=== PATIENT | female | born 1985 | race Asian ===

== ENCOUNTER 2016-12-01 09:18 | Inpatient (IN) | payer MEDICAID, OTHER ==
[~2016-12-01] VITALS: Ht 157.5 cm; Wt 74.0 kg
[~2016-12-01 09:18] MED LIST: OMEPRAZOLE
[2016-12-01 09:36] VITALS: Ht 157.5 cm; Wt 74.0 kg
[2016-12-01] MEDS ORDERED: PRENAT PO (09:37)
[2016-12-01] MEDS ORDERED: CARBOPROST 250 MCG INJ IM PRN (10:00)
[2016-12-01] MEDS ORDERED: OXYTOCIN 30 UNITS/LR 500 ML IV SCH (10:00)
[2016-12-01] MEDS ORDERED: METHYLERGONOVINE 0.2 MG INJ IM PRN (10:00)
[2016-12-01] MEDS ORDERED: LACTATED RINGER'S 1,000 ML IV PRN (10:00)
[2016-12-01] MEDS ORDERED: OXYTOCIN 30 UNITS/LR 500 ML IV PRN (10:00)
[2016-12-01] MEDS ORDERED: LIDOCAINE 1% (MPF) 30 ML INJ INJ PRN (10:00)
[2016-12-01] MEDS ORDERED: MISOPROSTOL 200 MCG TAB PR PRN (10:00)
[2016-12-01] MEDS ORDERED: BUTORPHANOL 2 MG INJ IV PRN ×2 (10:00)
--- NOTE | 2016-12-01 10:25 | RADRPT ---
PROCEDURE: US OB. CLINICAL INDICATION: Decreased motion. TECHNIQUE: Multiple sonographic images of the uterus were obtained. The images were revi ewed on a PACS workstation. COMPARISON: No prior studies are available for comparison. FINDINGS: There is a single live intrauterine gestation. heart rate is 131 beats per minute. Measurements were made in order to determine age. The results are as follows: BPD = 8.99 cm. HC = 31.36 cm. AC = 35.26 cm. FL = 7.11 cm. Estimated weight is 3297 +/- 495 grams. LMP growth percentile is 16%. Menstrual age by ultrasound dates is 36 weeks 6 days. The estimated date of delivery is 12/23/2016. Position is cephalic and placenta is anterior grade II. There is no evidence for an abruption or moises centa previa. IMPRESSION: 1. Single live intrauterine gestation of 36 weeks 6 days menstrual age by ultrasound dates. 2. The estimated date of delivery is 12/23/2016. RPTAT: QQ .Benedicto Baldwin MD, Date Time Electronically viewed and signed by .Benedicto Baldwin MD, on 12/01/2016 10:24 .R/
[2016-12-01] MEDS ORDERED: DINOPROSTONE 10 MG VAG SUPP VAG ONE (10:30)
[2016-12-01] MEDS: LACTATED RINGER'S 1,000 ML IV SCH ×2 (10:30→21:41)
--- NOTE | 2016-12-01 10:38 | TRIAGE ---
OB Triage Datetime Report Generated by CPN: 12/01/2016 10:38 Datetime: 12/01/2016 09:46 Stage of : OB Triage Datetime: 12/01/2016 09:30 Stage of : OB Triage Assessment Type: Triage Maternal Assessment Level of Consciousness: Fully Conscious DTR's/Clonus: DTRs 2+; No Clonus Headache: Denies Blurred Vision: No Respiratory Effort: Unlabored; Regular Rhythm; Equal Expansion Breath Sounds, Left: Clear and Equal Breath Sounds, Right: Clear and Equal Nausea/Vomiting: Denies RUQ Epigastric Pain: Denies Lower Extremities Edema: None Degree: None Upper Extremities Edema: None Degree: None Facial Edema: None Temperature Route: Axillary Fall Risk Assessment History of Falling: (0) No Secondary Diagnosis: (0) No Ambulatory Aid: (0) Bedrest/Nurse Assist IV Therapy: (0) No Gait: (0) Normal/Bedrest/Immobile Mental Status: (0) Oriented to Own Ability Fall Score: 0 Fall Risk Score Definition: No Risk: No action required Labor Evaluation Frequency: 0 Monitor Mode: External Resting Tone [place]: Relaxed Heart Rate FHR Baseline Rate: 120 Monitor Mode: External US Variability: Moderate 6-25 bpm Decelerations: None Category: Category I Pain Assessment Pain Scale: 7 Pain Presence: Intermittent Pain Type: Cramping Pain Location: Abdomen Pain Goal: 3 Pain Relief Measures: Comfort Measures Vaginal Exam Dilatation (cms): 1.0 Effacement (%): 60 Station: -2 Exam By: SLAYNE Membrane Status: Intact Datetime: 12/01/2016 09:29 EGA: 40.6 Datetime: 12/01/2016 09:28 Time of Arrival: 12/01/2016 09:15 Arrived By: Ambulatory Chief Complaint: C/O DFM AND INTERMITTENT LOWER ABDOMINAL PAIN. DENIES LEAKING OR BLEEDING Movement: Decreased Contractions: Denies/Absent Rupture of Membranes: Denies Vaginal Bleeding: None Vaginal Discharge: Denies Recent Sexual Intercouse: Denies Abdominal Trauma: Not Applicable Patient Complaints: Cramping Time Provider Notified: 12/01/2016 09:46 Provider Notified: JORDAN Initial Plan: MONITOR, VE, EFW
[2016-12-01 11:05] LABS: BASOPHILS % 0.2 % (0.0-2.0); EOSINOPHILS # 0.1 10^3/ul (0.0-0.5); EOSINOPHILS % 1.1 % (0.0-7.0); HEMATOCRIT 39.3 % (37.0-47.0); HEMOGLOBIN 13.3 g/dl (12.0-16.0); LYMPHOCYTES # 1.2 10^3/ul (0.8-2.9); LYMPHOCYTES % 12.5 % (15.0-51.0); MEAN CORPUSCULAR HEMOGLOBIN 28.6 pg (29.0-33.0); MEAN CORPUSCULAR HGB CONC 33.7 g/dl (32.0-37.0); MEAN CORPUSCULAR VOLUME 84.8 fl (82.0-101.0); MEAN PLATELET VOLUME 9.2 fl (7.4-10.4); MONOCYTE # 0.4 10^3/ul (0.3-0.9); MONOCYTES % 3.8 % (0.0-11.0); NEUTROPHIL # 8.2 10^3/ul (1.6-7.5); NEUTROPHILS % 82.4 % (39.0-77.0); PLATELET COUNT 258 10^3/UL (140-440); RED BLOOD COUNT 4.64 10^6/ul (4.20-5.40); RED CELL DISTRIBUTION WIDTH 14.2 % (11.5-14.5); UNCORRECTED WBC 9.9 10^3/ul (4.8-10.8); WHITE BLOOD COUNT 9.9 10^3/ul (4.8-10.8)
[2016-12-01 11:09] LABS: INR 0.9; PARTIAL THROMBOPLASTIN TIME 30.3 Sec (25.0-35.0); PROTIME 12.1 Sec (12.2-14.2); PT RATIO 0.9
[2016-12-01 11:12] LABS: CONDITION 1
[2016-12-02] MEDS ORDERED: DINOPROSTONE 10 MG VAG SUPP VAG ONE (01:00)
[2016-12-02] MEDS: LACTATED RINGER'S 1,000 ML IV SCH ×3 (02:15→19:00)
[2016-12-02] MEDS ORDERED: OXYTOCIN 30 UNITS/LR 500 ML IV SCH (02:30)
[2016-12-02] MEDS ORDERED: FENTAnyl 2MCG/ML-ROPIV 0.2% 100 ML ONE (04:17)
[2016-12-02] MEDS ORDERED: DIPHENHYDRAMINE 50 MG INJ IV PRN (07:00)
[2016-12-02] MEDS ORDERED: HYDROmorphONE 1 MG/ML SYG IV PRN ×2 (07:00)
[2016-12-02] MEDS ORDERED: ZOLPIDEM 5 MG TAB PO PRN (07:00)
[2016-12-02] MEDS ORDERED: NALOXONE (0.4 MG/ML) INJ IV PRN (07:00)
[2016-12-02] MEDS ORDERED: FENTAnyl 2MCG/ML-ROPIV 0.2% 100 ML BAG EPI SCH (07:00)
[2016-12-02] MEDS ORDERED: ONDANSETRON 4 MG INJ IV PRN ×2 (07:00→12:00)
--- NOTE | 2016-12-02 08:58 | HP ---
Date/Time of Note Date/Time of Note DATE: 12/02/16 TIME: 08:52 OB - History Hx of Present Free Text/Dictation 31 years old female admitted to [facility] at 40 weeks 6/7 days for induction of labor pelvic examination on admission cervix 1 cm 60% effacement with vertex at -2 station heart rate category 1 patient will undergo duction with Cervidil. Estimated Due Date: Nov 25, 2016 : 3 Para: 2 Care: Good Care Ultrasounds: Normal mid trimester US Obstetrical Complications: None Medical Complications: None Past Family/Social History * Past Medical, Surgical, Family and Obstetric Histories reviewed from chart. Rubella: immune RPR/VDRL: Negative GBS Status: Negative HBsAG: Negative OB Admission Exam Physical Exam HEENT: WNL Heart: Rhythm Normal Lungs: Clear, Equal Abdomen: WNL Extremities: Normal Reflexes: Normal Cervical Dilatation: None Effacement: 50% Station: -2 Membranes: Intact Heart Rate: 130's Accelerations: Accelerations Present Decelerations: No Decelerations Varibility: Moderate Contractions on Admission: None Last 72 hours Lab Results CBC & BMP 12/01/16 10:25 KANCHAN ORTEGA MD Dec 02, 2016 08:57
--- NOTE | 2016-12-02 09:03 | LDN ---
Date/Time of Note Date/Time of Note DATE: 12/02/16 TIME: 08:58 Delivery Summary Normal spontaneous vaginal delivery of a baby girl from DAY discission shoulders delivered without any difficulty rest of the baby's body followed cord clamped after pulsation is stopped, placenta spontaneous expulsion inspected complete estimated blood loss 200 mL patient sustained area small vaginal laceration was repaired with 3-0 Vicryl. Problems: Infant Delivery Information Sex Sex: female Apgars 1 Minute: 9 5 Minute: 9 Suctioning Nose & mouth suctioned at elise: Yes Delee suction performed: No Umbilical Cord Umbilical cord with: 3 Vessels Cord presentations: no nuchal cord Cord Blood was obtained: Yes KANCHAN ORTEGA MD Dec 02, 2016 09:03
--- NOTE | 2016-12-02 10:52 | DELSUM ---
Delivery Summary A-C Datetime Report Generated by CPN: 12/02/2016 10:52 DELIVERY PERSONNEL Button Pusher: Dexter, Haydee MATERNAL INFORMATION Delivery Anesthesia: Epidural Medications in Delivery: 30 UNITS OXYTOCIN IN LR 500ML BOLUS Estimated Blood Loss (ml): 250 Placenta Cultured: No Maternal Complications: None LABOR SUMMARY EDC: 11/25/2016 00:00 No. Babies in Womb: 1 Attempted: No Labor Anesthesia: None LABOR INFORMATION Reason for Induction: Postterm Onset of Labor: 12/01/2016 11:48 Complete Dilatation: 12/02/2016 07:16 Cervical Ripening Agents: Cervidil Oxytocin: N/A Group B Beta Strep: Negative Antibiotics # of Doses: 0 Antibiotics Time of Last Dose: N/A Steroids Given: None Reason Steroids Not Administered: Not Applicable MEMBRANES Membranes Rupture Method: Spontaneous Rupture of Membranes: 12/02/2016 06:05 Length of Rupture (hr): 2.50 Amniotic Fluid Color: Clear Amniotic Fluid Amount: Moderate Amniotic Fluid Odor: Normal STAGES OF LABOR Stage 1 hr: 19 Stage 1 min: 28 Stage 2 hr: 1 Stage 2 min: 19 Stage 3 hr: 0 Stage 3 min: 2 Total Time in Labor hr: 20 Total Time in Labor min: 49 VAGINAL DELIVERY Laceration Extension: First Degree Laceration Type: Perineal Laceration Repair: Not Applicable Initial Vag Sponge Count: 20 Final Vag Sponge Count: 20 Initial Vag Sharps Count: 1 Final Vag Sharps Count: 1 Sponge Count Correct: Yes Sharps Count Correct: Yes BABY A INFORMATION Infant Delivery Date/Time: 12/02/2016 08:35 Method of Delivery: Vaginal Method of Delivery: Vaginal Born in Route : No : N/A Forceps: N/A Vacuum Extraction: N/A Shoulder Dystocia : N/A SHOULDER DYSTOCIA BABY A Infant Delivery Date/Time: 12/02/2016 08:35 PRESENTATION/POSITION BABY A Presentation: Cephalic Presentation: Cephalic Cephalic Presentation: Vertex Vertex Position: Left Occipital Anterior Breech Presentation: N/A PLACENTA INFORMATION BABY A Placenta Delivery Time : 12/02/2016 08:37 Placenta Method of Delivery: Spontaneous Placenta Status: Delivered SCORES BABY A Heart Rate 1 min: >100 bpm Resp Effort 1 min: Good Cry Reflex Irritability 1 min: Cough/Sneeze/Pulls Away Muscle Tone 1 min: Active Motion Color 1 min: Body [place], Extremit Blue Resuscitation Effort 1 min: Tactile Stimulation SCORE 1 MIN: 9 Heart Rate 5 min: >100 bpm Resp Effort 5 min: Good Cry Reflex Irritability 5 min: Cough/Sneeze/Pulls Away Muscle Tone 5 min: Active Motion Color 5 min: Body [place], Extremit Blue Resuscitation Effort 5 min: Tactile Stimulation SCORE 5 MIN: 9 INFORMATION BABY A Gestational Age at Delivery: 41.0 Gestational Status: Late Term- 41- 41.6 Weeks Outcome : Liveborn Condition : Stable Infant Sex: Female Sex: Female IDENTIFICATION/MEDS BABY A ID Band Number: [id number] ID Band Location: Right Leg; Left Arm Sensor Number: [id number] Sensor Location : Cord Clamp Vitamin K Given : Not Given Erythromycin Given: Not Given WEIGHT/LENGTH BABY A Birthweight (gm): 3570 Weight (lb): 7 Infant Weight (oz): 14 Length (in): 19.75 Infant Length (cm): 50.17 CORD INFORMATION BABY A No. Cord Vessels: 3 Nuchal Cord : N/A Cord Blood Taken: Yes Banking/Donate Info: N/A Infant Suction: Mouth; Nose ASSESSMENT BABY A Complications: None Physical Findings at Delivery: Within Normal Limits Respirations: Appears Normal Music Coordinator/ALS Called : No Transferred To: Remains with Mother
--- NOTE | 2016-12-02 10:52 | OPRPT ---
Intraop Record Datetime Report Generated by CPN: 12/02/2016 10:52 Datetime: 12/01/2016 09:29 Latex Allergies/Reactions: No Latex Allergies Datetime: 12/01/2016 09:18 Drug Allergies/Reactions: No Known Allergies/[place] (03/05/2011)
[2016-12-02 10:55] VITALS: BP 125/80; PULSE 78; RESP 18
[2016-12-02 11:40] VITALS: BP 113/71; PULSE 82; RESP 18
[2016-12-02] MEDS ORDERED: WITCH HAZEL/GLYCERIN PAD PR PRN (12:00)
[2016-12-02] MEDS ORDERED: BENZOCAINE 20% 56 ML SPRAY TOP PRN (12:00)
[2016-12-02] MEDS ORDERED: ACETAMINOPHEN 325 MG TAB PO PRN (12:00)
[2016-12-02] MEDS ORDERED: DIBUCAINE 1% 30 GM OINT PR PRN (12:00)
[2016-12-02] MEDS ORDERED: LANOLIN 7 GM TUBE TOP PRN (12:00)
[2016-12-02] MEDS ORDERED: ACETAMINOPHEN/CODEINE #3 TAB PO PRN ×2 (12:00)
[2016-12-02] MEDS ORDERED: OXYCODONE/ASPIRIN (4.88/325) TAB PO PRN ×2 (12:00)
[2016-12-02] MEDS: IBUPROFEN 600 MG TAB PO SCH ×3 (12:22→23:44)
[2016-12-02] MEDS: OXYTOCIN 30 UNITS/LR 500 ML IV SCH ×2 (12:22→19:00)
[2016-12-02 13:02] LABS: BARBITURATES Negative (NEGATIVE); BENZODIAZEPINES Negative (NEGATIVE)
[2016-12-02 13:03] LABS: CANNABINOIDS Negative (NEGATIVE)
[2016-12-02 13:06] LABS: COCAINE Negative (NEGATIVE); OPIATES Negative (NEGATIVE)
[2016-12-02 16:00] VITALS: BP 99/58; PULSE 80; RESP 18
[2016-12-02 19:48] VITALS: BP 105/80; PULSE 89; RESP 18
[2016-12-02] MEDS: SENNA/DOCUSATE NA (8.6MG/50MG) TAB PO SCH (21:18)
[2016-12-03] VITALS: BP 106/62; PULSE 85; RESP 18
[2016-12-03 04:13] VITALS: BP 108/61; PULSE 77; RESP 18
[2016-12-03] MEDS: IBUPROFEN 600 MG TAB PO SCH ×3 (05:58→18:35)
[2016-12-03 07:30] VITALS: BP 117/84; PULSE 76; RESP 18
[2016-12-03 07:37] LABS: BASOPHIL # 0.1 10^3/ul (0.0-0.1); BASOPHILS % 0.5 % (0.0-2.0); EOSINOPHILS # 0.1 10^3/ul (0.0-0.5); EOSINOPHILS % 1.1 % (0.0-7.0); HEMATOCRIT 32.9 % (37.0-47.0); HEMOGLOBIN 11.1 g/dl (12.0-16.0); LYMPHOCYTES # 1.9 10^3/ul (0.8-2.9); LYMPHOCYTES % 14.5 % (15.0-51.0); MEAN CORPUSCULAR HEMOGLOBIN 28.9 pg (29.0-33.0); MEAN CORPUSCULAR HGB CONC 33.8 g/dl (32.0-37.0); MEAN CORPUSCULAR VOLUME 85.6 fl (82.0-101.0); MONOCYTE # 0.7 10^3/ul (0.3-0.9); MONOCYTES % 5.1 % (0.0-11.0); NEUTROPHIL # 10.3 10^3/ul (1.6-7.5); NEUTROPHILS % 78.8 % (39.0-77.0); PLATELET COUNT 219 10^3/UL (140-440); RED BLOOD COUNT 3.84 10^6/ul (4.20-5.40); RED CELL DISTRIBUTION WIDTH 14.1 % (11.5-14.5); UNCORRECTED WBC 13.1 10^3/ul (4.8-10.8); WHITE BLOOD COUNT 13.1 10^3/ul (4.8-10.8)
[2016-12-03 08:02] LABS: CONDITION 1
[2016-12-03] MEDS: SENNA/DOCUSATE NA (8.6MG/50MG) TAB PO SCH ×2 (08:45→21:25)
[2016-12-03 16:00] VITALS: BP 136/86; PULSE 73; RESP 18
[2016-12-03 20:00] VITALS: BP 138/84; PULSE 65; RESP 20
--- NOTE | 2016-12-03 23:46 | PN ---
Date/Time of Note Date/Time of Note DATE: 12/03/16 TIME: 23:43 OB Subjective Subjective Subjective 31 yo P2, s/p , PPD#1, doing well OB Objective Objective Objective Abdomen- fundus firm, n/t Perineum- scant lochia Ext- no edema OB Assessment/Plan Other Assessment: 31 yo, s/p uncomplicated , PPD#1, doing well Other plan: Likely d/c home tomorrow ROBERT ELLIS MD Dec 03, 2016 23:46
[2016-12-04] MEDS: IBUPROFEN 600 MG TAB PO SCH ×4 (00:50→18:11)
[2016-12-04 04:24] VITALS: BP 119/85; PULSE 68; RESP 20
[2016-12-04 08:45] VITALS: BP 128/85; PULSE 83; RESP 19
[2016-12-04] MEDS: SENNA/DOCUSATE NA (8.6MG/50MG) TAB PO SCH (08:57)
[2016-12-04] MEDS ORDERED: MEASLES,MUMPS,RUBELLA VACCINE INJ SC* ONE (09:00)
--- NOTE | 2016-12-04 14:44 | PD.PPDC ---
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
--- NOTE | 2016-12-04 14:46 | DS ---
Date/Time of Note Date/Time of Note DATE: 12/04/16 TIME: 14:45 Obstetrical Discharge Record Final Diagnosis Final Diagnosis: Term delivered Vaginal Delivery Obstetrical Delivery: Spontaneous Condition on Discharge Physical Assessment Last Vitals: Vital sign a stable afebrile abdomen soft uterus firm lochia normal extremity normal patient discharged home with follow-up instruction recommended to make appointment in 2 weeks Voiding: Yes Bowel Movement: Yes Breast: Filling Calf Tenderness: No Patient Condition: Good KANCHAN ORTEGA MD Dec 04, 2016 14:46
[2016-12-04 16:10] VITALS: BP 132/83; PULSE 69; RESP 18
== END 2016-12-04 18:57 | disposition home or self-care (01) | DRG 775 ==
LOC: OBT 09:18 → L-D 09:19 → OBT 09:51 → L-D 09:52 → PP1 12-02 10:40
PROVIDERS: ADMIT Obstetrics & Gynecology; ATTEND Obstetrics & Gynecology
PROC: 10E0XZZ Delivery of Products of Conception, External Approach (ICD-10-PCS; principal; 2016-12-02)
PROC: 0UQGXZZ Repair Vagina, External Approach (ICD-10-PCS; 2016-12-02)
DX: O71.4 Obstetric high vaginal laceration alone (principal); Z37.0 Single live birth; Z3A.40 40 weeks gestation of pregnancy
CPT/HCPCS: 62319; 76815; 80307; 85025; 85610; 85730; 86592; 86900; 86901; G0463; J2590; J3010; J7120